=== PATIENT | male | born 1965 | race Caucasian/White ===

== ENCOUNTER 2018-05-23 04:53 | Emergency (ER) | payer BC ==
[~2018-05-23] VITALS: Ht 182.9 cm; Wt 131.8 kg
[~2018-05-23 04:53] MED LIST: TYLENO1
[2018-05-23 06:04] LABS: HEMATOCRIT 39.7 % (39.0-50.0); HEMOGLOBIN 12.7 g/dl (14.0-18.0); IMMATURE GRANULOCYTES 0.4 % (0.0-5.0); MEAN CELL VOLUME 90.4 fL CALC (80.0-100.0); MEAN CORPUSCULAR HGB 28.9 pG CALC (26.0-32.0); NEUT# 7.52 thou/uL (1.82-7.42); RED BLOOD COUNT 4.39 mill/uL (4.70-6.10); RED CELL DISTRI WIDTH 14.4 % (11.5-15.5)
[2018-05-23 06:19] LABS: ALBUMIN 3.6 g/dL (3.2-5.0); ALKALINE PHOSPHATASE 91 u/l (38-126); ANION GAP 13 (6-22 (CALC)); BILIRUBIN, TOTAL 0.4 mg/dL (0.0-1.4); BUN 17 mg/dL (9-20); BUN/CREATININE RATIO 12 (12-20 (CALC)); CARBON DIOXIDE 26 mmol/l (22-30); CHLORIDE 105 mmol/l (95-108); CREATININE 1.5 mg/dL (0.7-1.3); GFR 49 ML/MIN (>=60 (CALC)); GFR FOR AFR.AMER. 59 ML/MIN (>=60 (CALC)); POTASSIUM 4.2 mmol/l (3.5-5.1); SGOT/AST 19 u/l (17-59); SODIUM 140 mmol/l (137-146); TOTAL PROTEIN 6.3 g/dL (6.3-8.2)
[2018-05-23 06:31] LABS: MYOGLOBIN 70 ng/mL (0 - 121)
[2018-05-23 06:43] LABS: URINE BILIRUBIN - DIPSTICK NEGATIVE (NEGATIVE); URINE BLOOD DIPSTICK NEGATIVE (NEGATIVE); URINE COLOR YELLOW; URINE GLUCOSE - DIPSTICK NEGATIVE (NEGATIVE); URINE KETONE NEGATIVE (NEGATIVE); URINE LEUK ESTERASE NEGATIVE (NEGATIVE); URINE NITRITE - DIPSTICK NEGATIVE (Negative); URINE PH 6.5 (4.5-8.0); URINE PROTEIN - DIPSTICK NEGATIVE (NEG-TRACE); URINE UROBILINOGEN - DIPSTICK 0.2 E.U./dL (0.2)
[2018-05-23 06:46] LABS: BARBITURATES NEGATIVE (NEGATIVE); COCAINE NEGATIVE (NEGATIVE); METHADONE NEGATIVE (NEGATIVE); TETRAHYDROCANNABIONOL NEGATIVE (NEGATIVE); TRICYLIC ANTIDEPRESSANTS NEGATIVE (NEGATIVE)
[2018-05-23 06:48] LABS: OXCYCODONE NEGATIVE (NEGATIVE)
[2018-05-23] MEDS ORDERED: FLEXERIL PO (06:48)
[2018-05-23 07:21] VITALS: BP 164/93
== END 2018-05-23 07:21 | disposition home or self-care (01) | DRG 74 ==
LOC: ED 04:53
PROVIDERS: Emergency Medicine
DX: M54.12 Radiculopathy, cervical region (principal); I10 Essential (primary) hypertension; J45.909 Unspecified asthma, uncomplicated; F17.210 Nicotine dependence, cigarettes, uncomplicated; Z87.11 Personal history of peptic ulcer disease
CPT/HCPCS: Q9967

== ENCOUNTER 2018-05-23 13:40 | Emergency (ER) | payer BC ==
[~2018-05-23] VITALS: Ht 182.9 cm; Wt 131.4 kg
[~2018-05-23 13:40] MED LIST changes: +FLEXERIL PO
[2018-05-23 14:23] LABS: HEMOGLOBIN 12.5 g/dl (14.0-18.0); IMMATURE GRANULOCYTES 0.2 % (0.0-5.0); MEAN CELL VOLUME 90.3 fL CALC (80.0-100.0); MEAN CORPUSCULAR HGB 28.2 pG CALC (26.0-32.0); MEAN CORPUSCULAR HGB CONC 31.3 g/L CALC (32.0-36.0); NEUT# 6.9 thou/uL (1.82-7.42); RED BLOOD COUNT 4.43 mill/uL (4.70-6.10); RED CELL DISTRI WIDTH 14.5 % (11.5-15.5)
[2018-05-23 14:38] LABS: INTERNATIONAL NORMALIZED RATIO 1.1 RATIO (0.7-1.3); PROTHROMBIN TIME 11.4 SECONDS (9.0-12.5)
[2018-05-23 14:40] LABS: CREATININE 1.5 mg/dL (0.7-1.3); POTASSIUM 4.5 mmol/l (3.5-5.1)
[2018-05-23 16:04] VITALS: BP 169/104
== END 2018-05-23 16:10 | disposition left against medical advice (07) | DRG 66 ==
LOC: ED 13:40
PROVIDERS: Family Medicine
DX: I63.9 Cerebral infarction, unspecified (principal); R47.81 Slurred speech; R20.0 Anesthesia of skin; R29.702 NIHSS score 2; I10 Essential (primary) hypertension; J45.909 Unspecified asthma, uncomplicated; F17.200 Nicotine dependence, unspecified, uncomplicated; Z91.19 Patient's noncompliance with other medical treatment and regimen; Z87.11 Personal history of peptic ulcer disease
CPT/HCPCS: Q9967

== ENCOUNTER 2018-07-16 15:00 | Outpatient (RCR) | payer BC | END 2018-07-16 16:00 | disposition home or self-care (01) | DRG 69 | LOC: PT 15:00 | PROVIDERS: ATTEND Physician Assistant Medical | DX: G45.9 Transient cerebral ischemic attack, unspecified (principal) ==

== ENCOUNTER 2019-06-01 17:44 | Inpatient (IN) | payer BC ==
[~2019-06-01] VITALS: Ht 182.9 cm; Wt 139.3 kg
--- NOTE | 2019-06-01 17:55 | NUR ---
PT STATES HASNT BEEN FEELING GOOD FOR A WEEK, INCREAED SOB
[2019-06-01 18:09] LABS: IMMATURE GRANULOCYTES 0.8 % (0.0-5.0); MEAN CELL VOLUME 95.3 fL CALC (80.0-100.0); MEAN CORPUSCULAR HGB 31.1 pG CALC (26.0-32.0); MEAN CORPUSCULAR HGB CONC 32.6 g/L CALC (32.0-36.0); NEUT# 10.94 thou/uL (1.82-7.42); RED BLOOD COUNT 5.08 mill/uL (4.70-6.10); RED CELL DISTRI WIDTH 13.2 % (11.5-15.5)
[2019-06-01 18:10] LABS: HEMATOCRIT 48.4 % (39.0-50.0); HEMOGLOBIN 15.8 g/dl (14.0-18.0)
--- NOTE | 2019-06-01 18:10 | NUR ---
PT RESTING BETTER, STATES FEELS MUCH BETTER.
[2019-06-01 18:24] LABS: ALBUMIN 4.3 g/dL (3.2-5.0); CREATININE 1.5 mg/dL (0.7-1.3); POTASSIUM 3.9 mmol/l (3.5-5.1)
[2019-06-01 18:28] LABS: BILIRUBIN, TOTAL 1.9 mg/dL (0.0-1.4); TOTAL PROTEIN 8.4 g/dL (6.3-8.2)
--- NOTE | 2019-06-01 19:50 | NUR ---
PT UNABLE TO RECONCILE MEDICATIONS. SLEEPING AT THIS TIME WITH DAUGHTER AT BEDSIDE. STATES FEELS MUCH BETTER.
--- NOTE | 2019-06-01 20:49 | NUR ---
PT STATES RAN OUT OF HIS MEDICATIONS 2 DAYS AGO, BUT STILL CANT REMEMBER WHAT THEY WERE, DENIES BEING ON ANY NEB TX OR INHALERS. PT RESTING QUIETLY, APPROX 750 CC OF URINE OUTPUT SO FAR.
--- NOTE | 2019-06-01 21:00 | NUR ---
UP TO SIDE OF BED TO URINATE. PT BECOMES VERY SOB WITH MOVEMENT AND EXERTION
--- NOTE | 2019-06-01 21:46 | NUR ---
PT PLACED IN HOSPITAL BED, FAMILY REMAINS AT BEDSIDE
--- NOTE | 2019-06-01 22:05 | NUR ---
REPORT RECEIVED. CARE ASSUMED. PATIENT FOUND RESTING ON HIS RIGHT SIDE ON HOSPITAL BED. DENIES ANY COMPLAINTS. PATIENT PLACE ON MONITOR. AWARE OF BP CHECK EVERY 4 HOURS. PATIENT HAS CALL LIGHT WITHIN REACH. LIGHTS DIMMED. PATIENT GIVEN ADDITIONAL WARM BLANKETS.
--- NOTE | 2019-06-01 23:00 | NUR ---
PATIENT RESTING ON HOSPITAL BED IN POSITION OF COMFORT. CALL LIGHT WITHIN REACH.
--- NOTE | 2019-06-02 00:30 | NUR ---
PATIENT RESTING ON HIS RIGHT SIDE. PLACED BACK ON MONITOR SOME LEADS HAD COME OFF. PATIENT GIVEN WATER.
--- NOTE | 2019-06-02 02:00 | NUR ---
PATIENT RESTING WITH EYES CLSOED. GOOD CHEST RISE AND FALL NOTED.
--- NOTE | 2019-06-02 03:30 | NUR ---
URINE SAMPLE COLLECTED AND SENT. PATIENT GIVEN PO FLUIDS. AIR TEMP MADE COOLER FOR COMFORT. CALL LIGHT WITHIN REACH.
[2019-06-02 03:34] LABS: URINE BILIRUBIN - DIPSTICK NEGATIVE (NEGATIVE); URINE BLOOD DIPSTICK NEGATIVE (NEGATIVE); URINE COLOR YELLOW; URINE GLUCOSE - DIPSTICK 100 mg/dL (NEGATIVE); URINE KETONE NEGATIVE (NEGATIVE); URINE LEUK ESTERASE NEGATIVE (NEGATIVE); URINE NITRITE - DIPSTICK NEGATIVE (Negative); URINE PH 5.5 (4.5-8.0); URINE PROTEIN - DIPSTICK NEGATIVE (NEG-TRACE); URINE SPECIFIC GRAVITY 1.025
--- NOTE | 2019-06-02 05:50 | NUR ---
PATIENT UP TO BEDSIDE COMMODE, NASAL CANNULA FOUND TO BE ON PATIENT'S FOREHEAD, PLACED BACK IN NARES.
--- NOTE | 2019-06-02 06:00 | NUR ---
PATIENT SITTING ON SIDE OF BED. HAD SMALL LIQUID YELLOW STOOL. PATIENT IS TACHYPNEIC WITH AUDIBLE WHEEZING. LUNG SOUNDS ASSESSED, WHEEZING HEARD IN ALL DUMONT. PATIENT 02 SATS 88%. MD AWARE AND ORDERS RECEIVED.
--- NOTE | 2019-06-02 06:10 | NUR ---
LAB AT BEDSIDE FOR MORNING BLOOD DRAW. PATIENT TOLERATED WELL. PATIENT GIVEN PO FLUIDS AND HE PUT HIMSELF ON HOSPITAL BED LYING ON HIS RIGHT SIDE. AWAITING RESPIRATORY FOR NEB TREATMENT.
[2019-06-02 06:32] LABS: CHOLESTEROL HDL RATIO 4.4 (<4.4 (CALC))
--- NOTE | 2019-06-02 06:33 | NUR ---
PT IN E SLEEPING. TOLLERATED TX WELL.
--- NOTE | 2019-06-02 06:38 | NUR ---
PATIENT TOLERATED NEB WELL. SATS IMPROVED TO 93% PATIENT REQUESTING FOOD. INFORMED WHEN THE [place] DELIVERS.
--- NOTE | 2019-06-02 07:00 | NUR ---
BEDSIDE REPORT RECEIVED FROM JESUS MOREJON. PATIENT RESTING ON BED WITH EYES CLOSED RESPIRATIONS EVEN AND UNLABORED. WILL CONTINUE TO MONITOR.
--- NOTE | 2019-06-02 08:00 | NUR ---
PATIENT ASSISTED TO AND FROM BSC, SMALL YELLOW LOOSE STOOL EMPTIED. PATIENT NOTED TO HAVE DECREASED LUNG SOUNDS BILATERALLY. TEMP 99.0, HR 86, BP 107/58, O2 90% ON O2 @ 2L/MIN VIA NASAL CANNULA. CALL LIGHT WITHIN REACH.
--- NOTE | 2019-06-02 09:36 | NUR ---
PATIENT MEDICATED PER MD ORDER. URINAL PROVIDED. PATIENT ATE 100% OF MEAL TRAY WITH 120 ML OF ORANGE JUICE. PATIENT BACK IN BED. WILL CONTINUE TO MONITOR.
--- NOTE | 2019-06-02 11:26 | NUR ---
AT BEDSIDE TO SEE PATIENT.
--- NOTE | 2019-06-02 12:30 | NUR ---
FAMILY AT BEDSIDE WITH PATIENT. PATIENT SET UP WITH LUNCH TRAY.
--- NOTE | 2019-06-02 15:41 | NUR ---
Updated SBAR printed to floor
--- NOTE | 2019-06-02 16:18 | NUR ---
PATIENT RESTING ON BED TALKING ON PHONE. NO SIGNS OF DISTRESS NOTED. WILL CONTINUE TO MONITOR.
--- NOTE | 2019-06-02 16:49 | NUR ---
ATTEMPT MADE TO CALL REPORT, SPOKE TO ZARIA GARCIA. NURSE TAKING PATIENT WILL CALL BACK.
--- NOTE | 2019-06-02 17:05 | NUR ---
SECOND ATTEMPT MADE TO CALL REPORT, SPOKE TO LYUBOV. REPORTS NURSE YOSEF, NOT AVAILABLE FOR REPORT.
--- NOTE | 2019-06-02 18:40 | NUR ---
BEDSIDE REPORT GIVEN TO JESUS STANLEY. THIRD ATTEMPT MADE TO CALL REPORT. LYUBOV REPORTS NURSE WILL CALL FOR REPORT.
--- NOTE | 2019-06-02 19:00 | NUR ---
IN ROOM INTRODUCED SELF TO PT. AND FAMILY, NO C/O AT THIS TIME.
--- NOTE | 2019-06-02 19:03 | NUR ---
BEDSIDE REPORT GIVEN TO JESUS STANLEY. CARE RELINQUISHED.
--- NOTE | 2019-06-02 19:21 | NUR ---
Admission Note Report Given to: JARETH LEE Transported by: Wheelchair X Stretcher Transported with: X Nurse Transporter X Patent IV X O2 X Rivet Tapping Machine Operator Location: ICU X [facility]
--- NOTE | 2019-06-02 19:25 | NUR ---
PT. TAKEN TO [facility] VIA HOSPITAL BED.
[2019-06-02 19:31] VITALS: BP 98/58
--- NOTE | 2019-06-02 21:00 | NUR ---
RECEIVED REPORT FROM NURSE STANLEY, PATIENT TRANSPORTED VIA BED, ARRIVED TO FOOR @ 1931, ALERT ORIENTED WITH SALINE LOCK ON RAC PATENT FLUSHES WELL REMAINS ON TELE SR 96, HOOKED TO O2 @ 3LPM VIA NC, WITH SHALLOW, UNLABORED BREATHING, NOTED TO HAVE EXERTIONAL DYSPNEA, ORIENTED TO ROOM AND CALL LIGHT AYSTEM.
--- NOTE | 2019-06-02 23:30 | NUR ---
PATIENT ASSISTED TO BATHROOM, USES CANE TO AMBULATE STAND BY ASSIST, ASSISTED BACK IN BED.
[2019-06-02 23:35] VITALS: BP 108/70
[2019-06-03 03:30] VITALS: BP 127/61
--- NOTE | 2019-06-03 04:00 | NUR ---
PATIENT RESTING IN BED WITH EYES CLOSED, EVEN UNLABORED BREATHING CALL LIGHT AT REACH.
[2019-06-03 05:19] LABS: HEMATOCRIT 44.3 % (39.0-50.0); HEMOGLOBIN 14.1 g/dl (14.0-18.0); IMMATURE GRANULOCYTES 0.8 % (0.0-5.0); MEAN CELL VOLUME 97.1 fL CALC (80.0-100.0); MEAN CORPUSCULAR HGB 30.9 pG CALC (26.0-32.0); MEAN CORPUSCULAR HGB CONC 31.8 g/L CALC (32.0-36.0); NEUT# 13.15 thou/uL (1.82-7.42); RED BLOOD COUNT 4.56 mill/uL (4.70-6.10); RED CELL DISTRI WIDTH 13.2 % (11.5-15.5)
[2019-06-03 05:28] LABS: CREATININE 1.8 mg/dL (0.7-1.3); MAGNESIUM 2.2 mg/dL (1.6-2.3)
[2019-06-03 05:29] LABS: POTASSIUM 4.8 mmol/l (3.5-5.1)
[2019-06-03 08:10] VITALS: BP 109/65
--- NOTE | 2019-06-03 08:10 | NUR ---
PT RESTING IN BED. PT SOB ON RA O2 SAT 84%. O2 PLACED ON PT VIA NC @ 3L O2 SAT 91. LUNGS SOUND COARSE. PEDAL PULSE STRONG. PT DENIES ANY PAIN OR DISCOMFORT AT THIS TIME. TELE IN PLACE. CALL ROMANO WITHIN REACH. WILL CONTINUE TO MONITOR.
[2019-06-03 10:12] VITALS: BP 117/74
[2019-06-03 11:10] VITALS: BP 115/74
[2019-06-03] MEDS ORDERED: LASIX 20 MG TAB20 MG PO (12:18)
[2019-06-03] MEDS ORDERED: HYZAAR1 TA2 PO (12:18)
[2019-06-03] MEDS ORDERED: LIPITOR20 M1 PO (12:19)
[2019-06-03] MEDS ORDERED: NORVASC10 M1 PO (12:19)
[2019-06-03] MEDS ORDERED: KLOR-CON M2020 MEQ PO (12:20)
--- NOTE | 2019-06-03 12:51 | NUR ---
PT RETURNING TO FLOOR FROM ULTRA SOUND VIA WHEELCHAIR.
[2019-06-03 15:52] VITALS: BP 122/78
--- NOTE | 2019-06-03 16:15 | NUR ---
PT RESTING IN BED. RESPIRATIONS SHALLOW ON O2 @ 3L VIA NC. NO S/S OF DISTRESS AT THIS TIME. SAFETY PRECAUTIONS IN PLACE.
[2019-06-03 19:15] VITALS: BP 121/76
--- NOTE | 2019-06-03 20:15 | NUR ---
PT RESTING IN BED DAUGHTER AT BED SIDE. NO S/S OF DISTRESS AT THIS TIME. SAFETY PRECAUTIONS IN PLACE. WILL CONTINUE TO DENY.
--- NOTE | 2019-06-04 | NUR ---
PT RESTING IN BED. NO S/S OF DISTRESS AT THIS TIME.
[2019-06-04 01:04] VITALS: BP 121/63
--- NOTE | 2019-06-04 03:34 | NUR ---
PT RESTING WITH EYES CLOSED; NO S/SX OF DISTRESS NOTED; CALL ROMANO WITHIN REACH; WILL CONTINUE TO MONITOR.
[2019-06-04 04:14] VITALS: BP 127/67
[2019-06-04 04:18] LABS: HEMATOCRIT 44.6 % (39.0-50.0); HEMOGLOBIN 13.9 g/dl (14.0-18.0); MEAN CELL VOLUME 98.5 fL CALC (80.0-100.0); MEAN CORPUSCULAR HGB 30.7 pG CALC (26.0-32.0); MEAN CORPUSCULAR HGB CONC 31.2 g/L CALC (32.0-36.0); RED BLOOD COUNT 4.53 mill/uL (4.70-6.10); RED CELL DISTRI WIDTH 13.2 % (11.5-15.5)
[2019-06-04 04:53] LABS: CREATININE 1.9 mg/dL (0.7-1.3); MAGNESIUM 2.3 mg/dL (1.6-2.3)
[2019-06-04 05:04] LABS: POTASSIUM 5.2 mmol/l (3.5-5.1)
--- NOTE | 2019-06-04 06:46 | NUR ---
PT IS RELAXING IN BED WITH NO DISTRESS NOTED. IV SITE IS FREE FROM REDNESS OR EDEMA.
[2019-06-04 07:22] VITALS: BP 107/65
--- NOTE | 2019-06-04 08:04 | NUR ---
PT IS SITTING IN THE SIDE OF THE BED. ASSESSMENT DONE. PT IS A&O X3. PT STATED PAIN IN KNEE BUT REFUSED PAIN MEDICATION AT THIS TIME. O2 AT 3L VIA NC. PT DENIES NEEDS AT THIS TIME. CALL LIGHT IN REACH,
[2019-06-04 11:56] VITALS: BP 125/70
--- NOTE | 2019-06-04 12:00 | NUR ---
PT SITTING IN THE SIDE OF THE BED. PT STATED WAITING TO BE DC. TELE IN PLACE. PT DENIES ANY OTHER NEEDS AT THIS TIME. CALL LIGHT IN REACH.
[2019-06-04] MEDS ORDERED: COZAAR50 MG PO (12:17)
[2019-06-04] MEDS ORDERED: ZITHROMAX500 MG PO (12:17)
[2019-06-04] MEDS ORDERED: SPIRIVA RE2.5 MCG/AC IN (12:17)
[2019-06-04] MEDS ORDERED: PREDNISONE10 MG PO (12:17)
[2019-06-04 16:00] VITALS: BP 133/76
--- NOTE | 2019-06-04 16:06 | NUR ---
PT IS SITTING IN THE SIDE OF THE BED. PT WAITING FOR HIS O2 TANK SO HE CAN BE DC. PT DENIES ANY OTHER NEEDS AT THAT THIS TIME. CALL LIGHT IN REACH.
--- NOTE | 2019-06-04 18:02 | NUR ---
Discharge instructions given. Patient verbalizes understanding of same. Discharged in stable condition via Wheelchair to Home with staff. All belongings sent with pt.
--- NOTE | 2019-06-12 11:41 | NUR ---
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 DR. 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 COUNSELED PATIENT ON HOW TO USE THE HANDIHALER AND REQUESTED THAT HE ASK THE PHARMACIST AT PRIMER INSERTING MACHINE OPERATOR TO SHOW HIM HOW TO USE IT. PT UNDERSTOOD AND STATED HE WILL PRIMER INSERTING MACHINE OPERATOR THE PRESCRIPTION TODAY.
== END 2019-06-04 18:00 | disposition home or self-care (01) | DRG 193 ==
LOC: ED 17:44 → ED-I 20:11 → ED 20:27 → ED-I 20:27 → MS2 06-02 16:52
PROVIDERS: Emergency Medicine; Nurse Practitioner Family; ADMIT Internal Medicine; ATTEND Internal Medicine
DX: J18.9 Pneumonia, unspecified organism (principal); J96.01 Acute respiratory failure with hypoxia; J44.0 Chronic obstructive pulmonary disease with (acute) lower respiratory infection; J44.1 Chronic obstructive pulmonary disease with (acute) exacerbation; I12.9 Hypertensive chronic kidney disease with stage 1 through stage 4 chronic kidney disease, or unspecified chronic kidney disease; N18.3 Chronic kidney disease, stage 3 (moderate); E78.5 Hyperlipidemia, unspecified; F17.210 Nicotine dependence, cigarettes, uncomplicated; T50.1X6A Underdosing of loop [high-ceiling] diuretics, initial encounter; T46.5X6A Underdosing of other antihypertensive drugs, initial encounter; Z91.128 Patient's intentional underdosing of medication regimen for other reason
CPT/HCPCS: J1650

== ENCOUNTER 2019-08-29 | Emergency (ER) | payer BC ==
[~2019-08-29] MED LIST changes: +COZAAR50 MG PO; +HYZAAR1 TA2 PO; +KLOR-CON M2020 MEQ PO; +LASIX 20 MG TAB20 MG PO; +LIPITOR20 M1 PO; +NORVASC10 M1 PO; +PREDNISONE10 MG PO; +SPIRIVA RE2.5 MCG/AC IN; +ZITHROMAX500 MG PO
[2019-08-29 10:07] LABS: POTASSIUM 4.2 mmol/l (3.5-5.1)
[2019-08-29 10:15] LABS: ALBUMIN 3.3 g/dL (3.2-5.0); BILIRUBIN, TOTAL 2.9 mg/dL (0.0-1.4); CREATININE 6.6 mg/dL (0.7-1.3)
[2019-08-29 10:16] LABS: HEMATOCRIT 44.6 % (39.0-50.0); HEMOGLOBIN 13.9 g/dl (14.0-18.0); MEAN CELL VOLUME 97.6 fL CALC (80.0-100.0); MEAN CORPUSCULAR HGB 30.4 pG CALC (26.0-32.0); MEAN CORPUSCULAR HGB CONC 31.2 g/dL CAL (32.0-36.0); NEUT# 11.84 thou/uL (1.82-7.42); RED BLOOD COUNT 4.57 mill/uL (4.70-6.10); RED CELL DISTRI WIDTH 13.6 % (11.5-15.5)
[2019-08-29 13:42] LABS: URINE BILIRUBIN - DIPSTICK NEGATIVE (NEGATIVE); URINE BLOOD DIPSTICK LARGE (NEGATIVE); URINE COLOR YELLOW; URINE GLUCOSE - DIPSTICK NEGATIVE (NEGATIVE); URINE KETONE TRACE mg/dL (NEGATIVE); URINE LEUK ESTERASE NEGATIVE (NEGATIVE); URINE NITRITE - DIPSTICK NEGATIVE (Negative); URINE PROTEIN - DIPSTICK 100 mg/dL (NEG-TRACE); URINE SPECIFIC GRAVITY >=1.030
[2019-08-29 13:45] LABS: URINE EPITHELIAL CELLS MODERATE EPI/hpf (0-FEW)
--- NOTE | 2019-08-30 11:57 | NUR ---
Informed Ricarda in ICU [facility] of COVID results, pt in ICU 5 - D5 faxed to [phone], confirmed with Ricarda they received the results by fax.
== END 2019-08-29 14:10 | disposition short-term general hospital (02) | DRG 872 ==
PROVIDERS: Emergency Medicine
DX: A41.9 Sepsis, unspecified organism (principal); N17.9 Acute kidney failure, unspecified; L02.416 Cutaneous abscess of left lower limb; J44.1 Chronic obstructive pulmonary disease with (acute) exacerbation; M62.82 Rhabdomyolysis; I95.9 Hypotension, unspecified; R65.20 Severe sepsis without septic shock; I10 Essential (primary) hypertension; F17.210 Nicotine dependence, cigarettes, uncomplicated; Z99.81 Dependence on supplemental oxygen; Z20.828 Contact with and (suspected) exposure to other viral communicable diseases

== ENCOUNTER 2019-11-15 12:07 | Emergency (ER) | payer BC ==
[~2019-11-15] VITALS: Ht 182.9 cm; Wt 137.7 kg
[2019-11-15] MEDS ORDERED: ELIQUIS5 MG PO (12:47)
[2019-11-15] MEDS ORDERED: METOPROL TAR25 MG PO (12:48)
[2019-11-15] MEDS ORDERED: SEROQUEL25 MG PO (12:48)
[2019-11-15] MEDS ORDERED: PROTONIX40 M2 PO (12:49)
[2019-11-15] MEDS ORDERED: SUCRALFATE1 GM PO (12:49)
[2019-11-15] MEDS ORDERED: LORATADINE10 M1 PO (12:49)
[2019-11-15 13:39] LABS: IMMATURE GRANULOCYTES 0.1 % (0.0-5.0); MEAN CELL VOLUME 95.1 fL CALC (80.0-100.0); MEAN CORPUSCULAR HGB 28.7 pG CALC (26.0-32.0); MEAN CORPUSCULAR HGB CONC 30.2 g/dL CAL (32.0-36.0); NEUT# 4.27 thou/uL (1.82-7.42); RED BLOOD COUNT 3.45 mill/uL (4.70-6.10); RED CELL DISTRI WIDTH 14.9 % (11.5-15.5)
[2019-11-15 13:47] LABS: HEMATOCRIT 32.8 % (39.0-50.0); HEMOGLOBIN 9.9 g/dl (14.0-18.0)
[2019-11-15 13:51] LABS: ALBUMIN 3.3 g/dL (3.2-5.0); ALKALINE PHOSPHATASE 84 u/l (38-126); BUN 8 mg/dL (9-20); SGOT/AST 15 u/l (17-59); SODIUM 139 mmol/l (137-146); TOTAL PROTEIN 6.5 g/dL (6.3-8.2)
[2019-11-15 14:00] LABS: ANION GAP 10 (6-22 (CALC)); BILIRUBIN, TOTAL 0.6 mg/dL (0.0-1.4); BUN/CREATININE RATIO 6 (12-20 (CALC)); CARBON DIOXIDE 28 mmol/l (22-30); CHLORIDE 105 mmol/l (95-108); CREATININE 1.3 mg/dL (0.7-1.3); GFR 57 ML/MIN (>=60 (CALC)); GFR FOR AFR.AMER. > 60 ML/MIN (>=60 (CALC))
[2019-11-15] MEDS ORDERED: KEFLEX500 MG PO (15:31)
[2019-11-15] MEDS ORDERED: BACTRIM DS1 TAB PO (15:31)
[2019-11-15 16:35] VITALS: BP 127/68
== END 2019-11-15 16:35 | disposition home or self-care (01) | DRG 605 ==
LOC: ED 12:07
PROVIDERS: Emergency Medicine
DX: S71.102A Unspecified open wound, left thigh, initial encounter (principal); I10 Essential (primary) hypertension; F17.210 Nicotine dependence, cigarettes, uncomplicated; B95.62 Methicillin resistant Staphylococcus aureus infection as the cause of diseases classified elsewhere; X58.XXXA Exposure to other specified factors, initial encounter

== ENCOUNTER 2020-09-21 19:35 | Emergency (ER) | payer SELFPAY ==
[~2020-09-21 19:35] MED LIST changes: +BACTRIM DS1 TAB PO; +ELIQUIS5 MG PO; +KEFLEX500 MG PO; +LORATADINE10 M1 PO; +METOPROL TAR25 MG PO; +PROTONIX40 M2 PO; +SEROQUEL25 MG PO; +SUCRALFATE1 GM PO
[2020-09-21 20:38] LABS: IMMATURE GRANULOCYTES 0.4 % (0.0-5.0); MEAN CELL VOLUME 94.5 fL CALC (80.0-100.0); MEAN CORPUSCULAR HGB 27.9 pG CALC (26.0-32.0); MEAN CORPUSCULAR HGB CONC 29.6 g/dL CAL (32.0-36.0); NEUT# 11.6 thou/uL (1.82-7.42); RED BLOOD COUNT 4.58 mill/uL (4.70-6.10); RED CELL DISTRI WIDTH 15.4 % (11.5-15.5)
[2020-09-21 20:40] LABS: HEMATOCRIT 43.3 % (39.0-50.0); HEMOGLOBIN 12.8 g/dl (14.0-18.0)
[2020-09-21 20:59] LABS: CREATININE 1.8 mg/dL (0.7-1.3); POTASSIUM 4.2 mmol/l (3.5-5.1)
[2020-09-21 21:00] LABS: ALBUMIN 4.4 g/dL (3.2-5.0); BILIRUBIN, TOTAL 1.1 mg/dL (0.0-1.4); TOTAL PROTEIN 8.1 g/dL (6.3-8.2)
[2020-09-22 01:21] VITALS: BP 133/72
== END 2020-09-22 01:22 | disposition short-term general hospital (02) | DRG 603 ==
LOC: ED 19:35
PROVIDERS: Emergency Medicine
DX: L02.214 Cutaneous abscess of groin (principal); B95.62 Methicillin resistant Staphylococcus aureus infection as the cause of diseases classified elsewhere; I10 Essential (primary) hypertension; F17.210 Nicotine dependence, cigarettes, uncomplicated; J45.909 Unspecified asthma, uncomplicated; Z86.14 Personal history of Methicillin resistant Staphylococcus aureus infection
CPT/HCPCS: Q9967

== ENCOUNTER 2021-08-17 14:00 | Inpatient (IN) | payer MEDICARE, MEDICAID ==
[~2021-08-17] VITALS: Ht 182.9 cm; Wt 159.0 kg
[2021-08-17] VITALS (46 sets, daily range): BP systolic 90–178; BP diastolic 34–99
[2021-08-17 14:46] LABS: IMMATURE GRANULOCYTES 0.1 % (0.0-5.0); MEAN CELL VOLUME 97.6 fL CALC (80.0-100.0); MEAN CORPUSCULAR HGB 27.9 pG CALC (26.0-32.0); MEAN CORPUSCULAR HGB CONC 28.5 g/dL CAL (32.0-36.0); NEUT# 6.61 thou/uL (1.82-7.42); RED BLOOD COUNT 5.35 mill/uL (4.70-6.10); RED CELL DISTRI WIDTH 15.6 % (11.5-15.5)
[2021-08-17 14:47] LABS: HEMATOCRIT 52.2 % (39.0-50.0); HEMOGLOBIN 14.9 g/dl (14.0-18.0)
[2021-08-17 14:59] LABS: ALBUMIN 3.9 g/dL (3.2-5.0); BILIRUBIN, TOTAL 1.2 mg/dL (0.0-1.4); CREATININE 1.5 mg/dL (0.7-1.3); POTASSIUM 4.1 mmol/l (3.5-5.1); TOTAL PROTEIN 7.3 g/dL (6.3-8.2)
[2021-08-17] MEDS ORDERED: LASIX 40 MG TAB40 MG PO (20:08)
[2021-08-17] MEDS ORDERED: VENTOLIN HFA108 MCG (20:09)
[2021-08-17] MEDS ORDERED: KLOR-CON M2020 MEQ PO (20:10)
[2021-08-18] VITALS (93 sets, daily range): BP systolic 95–134; BP diastolic 39–84
[2021-08-18 00:34] LABS: URINE BILIRUBIN - DIPSTICK NEGATIVE (NEGATIVE); URINE BLOOD DIPSTICK NEGATIVE (NEGATIVE); URINE COLOR YELLOW; URINE GLUCOSE - DIPSTICK NEGATIVE (NEGATIVE); URINE KETONE NEGATIVE (NEGATIVE); URINE LEUK ESTERASE NEGATIVE (NEGATIVE); URINE NITRITE - DIPSTICK NEGATIVE (Negative); URINE PROTEIN - DIPSTICK 30 mg/dL (NEG-TRACE); URINE UROBILINOGEN - DIPSTICK 0.2 E.U./dL (0.2)
[2021-08-18 00:36] LABS: URINE RBC 0-2 RBC/hpf (0-5); URINE SQUAMOUS EPITHELIAL CELL FEW EPI/hpf (0-FEW)
[2021-08-18 05:50] LABS: HEMATOCRIT 49.3 % (39.0-50.0); HEMOGLOBIN 14.5 g/dl (14.0-18.0); IMMATURE GRANULOCYTES 0.1 % (0.0-5.0); MEAN CELL VOLUME 96.3 fL CALC (80.0-100.0); MEAN CORPUSCULAR HGB 28.3 pG CALC (26.0-32.0); MEAN CORPUSCULAR HGB CONC 29.4 g/dL CAL (32.0-36.0); NEUT# 13.01 thou/uL (1.82-7.42); RED BLOOD COUNT 5.12 mill/uL (4.70-6.10); RED CELL DISTRI WIDTH 15.6 % (11.5-15.5)
[2021-08-18 06:02] LABS: BILIRUBIN, TOTAL 1.2 mg/dL (0.0-1.4); CREATININE 1.5 mg/dL (0.7-1.3); MAGNESIUM 1.9 mg/dL (1.6-2.3); POTASSIUM 4.9 mmol/l (3.5-5.1)
[2021-08-18 06:17] LABS: ALBUMIN 2.9 g/dL (3.2-5.0); TOTAL PROTEIN 5.5 g/dL (6.3-8.2)
[2021-08-18 11:35] LABS: HEMATOCRIT 49.4 % (39.0-50.0); HEMOGLOBIN 14.5 g/dl (14.0-18.0); IMMATURE GRANULOCYTES 0.2 % (0.0-5.0); MEAN CELL VOLUME 94.6 fL CALC (80.0-100.0); MEAN CORPUSCULAR HGB 27.8 pG CALC (26.0-32.0); MEAN CORPUSCULAR HGB CONC 29.4 g/dL CAL (32.0-36.0); NEUT# 11.71 thou/uL (1.82-7.42); RED BLOOD COUNT 5.22 mill/uL (4.70-6.10); RED CELL DISTRI WIDTH 15.7 % (11.5-15.5)
[2021-08-18 12:07] LABS: ACT PARTIAL THROMBO TIME 25.4 SECONDS (20.0-32.5); INTERNATIONAL NORMALIZED RATIO 1.1 RATIO (0.7-1.3); PROTHROMBIN TIME 11.1 SECONDS (9.0-12.5)
[2021-08-19] VITALS (83 sets, daily range): BP systolic 116–146; BP diastolic 66–96
[2021-08-19 06:06] LABS: HEMATOCRIT 48.4 % (39.0-50.0); HEMOGLOBIN 14.2 g/dl (14.0-18.0); MEAN CELL VOLUME 94.5 fL CALC (80.0-100.0); MEAN CORPUSCULAR HGB 27.7 pG CALC (26.0-32.0); MEAN CORPUSCULAR HGB CONC 29.3 g/dL CAL (32.0-36.0); RED BLOOD COUNT 5.12 mill/uL (4.70-6.10); RED CELL DISTRI WIDTH 16.2 % (11.5-15.5)
[2021-08-19 06:32] LABS: ALBUMIN 2.9 g/dL (3.2-5.0); BILIRUBIN, TOTAL 0.9 mg/dL (0.0-1.4); CREATININE 1.6 mg/dL (0.7-1.3); MAGNESIUM 2.1 mg/dL (1.6-2.3); POTASSIUM 4.5 mmol/l (3.5-5.1); TOTAL PROTEIN 5.5 g/dL (6.3-8.2)
[2021-08-20] VITALS (20 sets, daily range): BP systolic 108–142; BP diastolic 57–83
[2021-08-20 06:09] LABS: HEMATOCRIT 45.6 % (39.0-50.0); HEMOGLOBIN 13.4 g/dl (14.0-18.0); MEAN CELL VOLUME 95.2 fL CALC (80.0-100.0); MEAN CORPUSCULAR HGB CONC 29.4 g/dL CAL (32.0-36.0); RED BLOOD COUNT 4.79 mill/uL (4.70-6.10); RED CELL DISTRI WIDTH 16.4 % (11.5-15.5)
[2021-08-20 06:27] LABS: ANION GAP 10 (6-22 (CALC)); BUN 32 mg/dL (9-20); BUN/CREATININE RATIO 23 (12-20 (CALC)); CARBON DIOXIDE 36 mmol/l (22-30); CHLORIDE 94 mmol/l (95-108); CREATININE 1.4 mg/dL (0.7-1.3); GFR 52 ML/MIN (>=60 (CALC)); GFR FOR AFR.AMER. > 60 ML/MIN (>=60 (CALC)); MAGNESIUM 2.1 mg/dL (1.6-2.3); SODIUM 136 mmol/l (137-146)
[2021-08-21] VITALS (19 sets, daily range): BP systolic 105–186; BP diastolic 48–91
[2021-08-21 06:21] LABS: HEMOGLOBIN 13.5 g/dl (14.0-18.0); IMMATURE GRANULOCYTES 0.2 % (0.0-5.0); MEAN CELL VOLUME 97.8 fL CALC (80.0-100.0); MEAN CORPUSCULAR HGB 27.5 pG CALC (26.0-32.0); MEAN CORPUSCULAR HGB CONC 28.1 g/dL CAL (32.0-36.0); NEUT# 4.93 thou/uL (1.82-7.42); RED BLOOD COUNT 4.91 mill/uL (4.70-6.10); RED CELL DISTRI WIDTH 16.1 % (11.5-15.5)
[2021-08-21 06:42] LABS: ALBUMIN 3.3 g/dL (3.2-5.0); ALKALINE PHOSPHATASE 68 u/l (38-126); BUN 23 mg/dL (9-20); BUN/CREATININE RATIO 18 (12-20 (CALC)); CHLORIDE 97 mmol/l (95-108); CREATININE 1.3 mg/dL (0.7-1.3); GFR 57 ML/MIN (>=60 (CALC)); GFR FOR AFR.AMER. > 60 ML/MIN (>=60 (CALC)); SGOT/AST 31 u/l (17-59); SODIUM 142 mmol/l (137-146); TOTAL PROTEIN 6.3 g/dL (6.3-8.2)
[2021-08-21 07:12] LABS: ANION GAP 9 (6-22 (CALC)); BILIRUBIN, TOTAL 1.4 mg/dL (0.0-1.4)
[2021-08-21 07:14] LABS: CARBON DIOXIDE 40 mmol/l (22-30)
[2021-08-22] VITALS (17 sets, daily range): BP systolic 121–169; BP diastolic 65–98
[2021-08-22 05:18] LABS: HEMATOCRIT 49.8 % (39.0-50.0); HEMOGLOBIN 14.1 g/dl (14.0-18.0); IMMATURE GRANULOCYTES 0.1 % (0.0-5.0); MEAN CELL VOLUME 99.2 fL CALC (80.0-100.0); MEAN CORPUSCULAR HGB 28.1 pG CALC (26.0-32.0); MEAN CORPUSCULAR HGB CONC 28.3 g/dL CAL (32.0-36.0); NEUT# 4.72 thou/uL (1.82-7.42); RED BLOOD COUNT 5.02 mill/uL (4.70-6.10); RED CELL DISTRI WIDTH 15.6 % (11.5-15.5)
[2021-08-22 05:46] LABS: ANION GAP 9 (6-22 (CALC)); BUN 17 mg/dL (9-20); BUN/CREATININE RATIO 13 (12-20 (CALC)); CARBON DIOXIDE 38 mmol/l (22-30); CHLORIDE 97 mmol/l (95-108); CREATININE 1.3 mg/dL (0.7-1.3); GFR 57 ML/MIN (>=60 (CALC)); GFR FOR AFR.AMER. > 60 ML/MIN (>=60 (CALC)); MAGNESIUM 2.4 mg/dL (1.6-2.3); SODIUM 141 mmol/l (137-146)
[2021-08-23] VITALS (109 sets, daily range): BP systolic 99–144; BP diastolic 59–80
[2021-08-23 03:28] LABS: HEMATOCRIT 53.6 % (39.0-50.0); HEMOGLOBIN 14.6 g/dl (14.0-18.0); MEAN CELL VOLUME 102.1 fL CALC (80.0-100.0); MEAN CORPUSCULAR HGB 27.8 pG CALC (26.0-32.0); MEAN CORPUSCULAR HGB CONC 27.2 g/dL CAL (32.0-36.0); RED BLOOD COUNT 5.25 mill/uL (4.70-6.10); RED CELL DISTRI WIDTH 15.5 % (11.5-15.5)
[2021-08-23 03:42] LABS: CREATININE 1.7 mg/dL (0.7-1.3); MAGNESIUM 2.5 mg/dL (1.6-2.3)
[2021-08-23 03:43] LABS: POTASSIUM 4.9 mmol/l (3.5-5.1)
[2021-08-24] VITALS (84 sets, daily range): BP systolic 82–120; BP diastolic 43–82
[2021-08-24 05:16] LABS: HEMATOCRIT 50.8 % (39.0-50.0); HEMOGLOBIN 14.9 g/dl (14.0-18.0); MEAN CORPUSCULAR HGB 27.7 pG CALC (26.0-32.0); MEAN CORPUSCULAR HGB CONC 29.3 g/dL CAL (32.0-36.0); RED BLOOD COUNT 5.37 mill/uL (4.70-6.10); RED CELL DISTRI WIDTH 15.6 % (11.5-15.5)
[2021-08-24 05:35] LABS: ANION GAP 11 (6-22 (CALC)); BUN 30 mg/dL (9-20); BUN/CREATININE RATIO 21 (12-20 (CALC)); CARBON DIOXIDE 33 mmol/l (22-30); CHLORIDE 99 mmol/l (95-108); CREATININE 1.4 mg/dL (0.7-1.3); GFR 52 ML/MIN (>=60 (CALC)); GFR FOR AFR.AMER. > 60 ML/MIN (>=60 (CALC)); MAGNESIUM 2.2 mg/dL (1.6-2.3); SODIUM 139 mmol/l (137-146)
[2021-08-24 05:40] LABS: POTASSIUM 3.5 mmol/l (3.5-5.1)
[2021-08-24 05:46] LABS: MEAN CELL VOLUME 94.6 fL CALC (80.0-100.0)
[2021-08-24 14:31] LABS: ACT PARTIAL THROMBO TIME 27.4 SECONDS (20.0-32.5); INTERNATIONAL NORMALIZED RATIO 1.1 RATIO (0.7-1.3); PROTHROMBIN TIME 11.1 SECONDS (9.0-12.5)
== END 2021-08-24 20:15 | disposition short-term general hospital (02) | DRG 208 ==
LOC: ED 14:00 → ED-I 14:25 → ED 14:25 → ED-I 16:26 → ED 17:00 → ICU 17:01 → MS2 08-22 11:04 → ICU 08-22 11:04 → MS2 08-22 11:04 → ICU 08-23 02:30
PROVIDERS: Family Medicine; Hospitalist; Internal Medicine; ADMIT Internal Medicine; ATTEND Internal Medicine
PROC: 5A09357 Assistance with Respiratory Ventilation, Less than 24 Consecutive Hours, Continuous Positive Airway Pressure (ICD-10-PCS; principal; 2021-08-17)
PROC: 5A1945Z Respiratory Ventilation, 24-96 Consecutive Hours (ICD-10-PCS; 2021-08-17)
PROC: 05JY3ZZ Inspection of Upper Vein, Percutaneous Approach (ICD-10-PCS; 2021-08-17)
PROC: 0BH17EZ Insertion of Endotracheal Airway into Trachea, Via Natural or Artificial Opening (ICD-10-PCS; 2021-08-17)
PROC: 0T9B70Z Drainage of Bladder with Drainage Device, Via Natural or Artificial Opening (ICD-10-PCS; 2021-08-17)
PROC: 02HV33Z Insertion of Infusion Device into Superior Vena Cava, Percutaneous Approach (ICD-10-PCS; 2021-08-18)
PROC: B548ZZA Ultrasonography of Superior Vena Cava, Guidance (ICD-10-PCS; 2021-08-18)
PROC: 0BH17EZ Insertion of Endotracheal Airway into Trachea, Via Natural or Artificial Opening (ICD-10-PCS; 2021-08-23)
PROC: 5A1945Z Respiratory Ventilation, 24-96 Consecutive Hours (ICD-10-PCS; 2021-08-23)
PROC: 5A12012 Performance of Cardiac Output, Single, Manual (ICD-10-PCS; 2021-08-23)
PROC: 0T9B70Z Drainage of Bladder with Drainage Device, Via Natural or Artificial Opening (ICD-10-PCS; 2021-08-23)
DX: J96.01 Acute respiratory failure with hypoxia (principal); J18.9 Pneumonia, unspecified organism; I50.33 Acute on chronic diastolic (congestive) heart failure; R57.0 Cardiogenic shock; I46.2 Cardiac arrest due to underlying cardiac condition; L03.115 Cellulitis of right lower limb; Z68.42 Body mass index [BMI] 45.0-49.9, adult; N17.9 Acute kidney failure, unspecified; I13.0 Hypertensive heart and chronic kidney disease with heart failure and stage 1 through stage 4 chronic kidney disease, or unspecified chronic kidney disease; J44.0 Chronic obstructive pulmonary disease with (acute) lower respiratory infection; T88.6XXA Anaphylactic reaction due to adverse effect of correct drug or medicament properly administered, initial encounter; I47.2 Ventricular tachycardia; J96.02 Acute respiratory failure with hypercapnia; N18.30 Chronic kidney disease, stage 3 unspecified; T36.8X5A Adverse effect of other systemic antibiotics, initial encounter; G47.33 Obstructive sleep apnea (adult) (pediatric); E66.01 Morbid (severe) obesity due to excess calories; I89.0 Lymphedema, not elsewhere classified; K21.9 Gastro-esophageal reflux disease without esophagitis; F17.200 Nicotine dependence, unspecified, uncomplicated; Z79.01 Long term (current) use of anticoagulants; Z86.718 Personal history of other venous thrombosis and embolism; Z86.711 Personal history of pulmonary embolism; Z20.822 Contact with and (suspected) exposure to COVID-19
CPT/HCPCS: J0692; J1245; J1644; S0164

== ENCOUNTER 2022-06-09 09:51 | Emergency (ER) | payer MEDICARE, MEDICAID ==
[2022-06-09] VITALS (34 sets, daily range): BP systolic 117–148; BP diastolic 36–94
[~2022-06-09] VITALS: Ht 182.9 cm; Wt 181.0 kg
[~2022-06-09 09:51] MED LIST changes: +LASIX 40 MG TAB40 MG PO; +VENTOLIN HFA108 MCG
[2022-06-09 10:32] LABS: BASO% 0.3 % (0-3); EOS% 0.6 % (0-8); HEMOGLOBIN 13.5 g/dl (14.0-18.0); IMMATURE GRANULOCYTES 0.2 % (0.0-5.0); LYMPH% 8.6 % (15-41); MEAN CELL VOLUME 96.5 fL CALC (80.0-100.0); MEAN CORPUSCULAR HGB 27.7 pG CALC (26.0-32.0); MEAN CORPUSCULAR HGB CONC 28.7 g/dL CAL (32.0-36.0); MONO% 7.6 % (2-13); NEUT# 8.93 thou/uL (1.82-7.42); NEUT% 82.7 % (42-76); RED BLOOD COUNT 4.87 mill/uL (4.70-6.10); RED CELL DISTRI WIDTH 17.3 % (11.5-15.5)
[2022-06-09 10:51] LABS: ALBUMIN 4.2 g/dL (3.2-5.0); ALKALINE PHOSPHATASE 106 u/l (38-126); ANION GAP 9 (6-22 (CALC)); BILIRUBIN, TOTAL 1.3 mg/dL (0.0-1.4); BUN 17 mg/dL (9-20); BUN/CREATININE RATIO 12 (12-20 (CALC)); CARBON DIOXIDE 35 mmol/l (22-30); CHLORIDE 100 mmol/l (95-108); CREATININE 1.4 mg/dL (0.7-1.3); GFR FOR AFR.AMER. > 60 ML/MIN (>=60 (CALC)); GFR OTHER RACES 52 ML/MIN (>=60 (CALC)); LIPASE 33 u/l (23-300); POTASSIUM 3.9 mmol/l (3.5-5.1); SGOT/AST 18 u/l (17-59); SODIUM 141 mmol/l (137-146); TOTAL PROTEIN 7.7 g/dL (6.3-8.2)
[2022-06-09] MEDS ORDERED: DULERA1 AE1 IN (11:21)
[2022-06-09] MEDS ORDERED: K-TABS10 MEQ PO (11:23)
[2022-06-09] MEDS ORDERED: TERAZOSIN1 MG PO (11:24)
[2022-06-09] MEDS ORDERED: COZAAR100 MG PO (11:24)
[2022-06-09] MEDS ORDERED: NIFEDIPINE60 MG PO (11:25)
[2022-06-09 13:30] LABS: URINE BILIRUBIN - DIPSTICK NEGATIVE (NEGATIVE); URINE BLOOD DIPSTICK NEGATIVE (NEGATIVE); URINE GLUCOSE - DIPSTICK NEGATIVE (NEGATIVE); URINE KETONE TRACE mg/dL (NEGATIVE); URINE LEUK ESTERASE NEGATIVE (Negative); URINE NITRITE - DIPSTICK POSITIVE (Negative); URINE PROTEIN - DIPSTICK 30 mg/dL (NEG-TRACE); URINE SPECIFIC GRAVITY >=1.030
[2022-06-09 13:35] LABS: URINE CLARITY HAZY; URINE COLOR DK. YELLOW
[2022-06-09 13:37] LABS: URINE BACTERIA FEW hpf; URINE EPITHELIAL CELLS FEW EPI/hpf (0-FEW); URINE MUCUS FEW hpf (NONE-FEW)
== END 2022-06-09 19:30 | disposition short-term general hospital (02) ==
LOC: ED 09:51
PROVIDERS: Emergency Medicine
PROC: 0T9B70Z Drainage of Bladder with Drainage Device, Via Natural or Artificial Opening (ICD-10-PCS; principal; 2022-06-09)
PROC: 05H533Z Insertion of Infusion Device into Right Subclavian Vein, Percutaneous Approach (ICD-10-PCS; 2022-06-09)
PROC: 5A09357 Assistance with Respiratory Ventilation, Less than 24 Consecutive Hours, Continuous Positive Airway Pressure (ICD-10-PCS; 2022-06-09)
PROC: 0BH17EZ Insertion of Endotracheal Airway into Trachea, Via Natural or Artificial Opening (ICD-10-PCS; 2022-06-09)
PROC: 5A1935Z Respiratory Ventilation, Less than 24 Consecutive Hours (ICD-10-PCS; 2022-06-09)
DX: I11.0 Hypertensive heart disease with heart failure (principal); I50.9 Heart failure, unspecified; J18.9 Pneumonia, unspecified organism; J44.0 Chronic obstructive pulmonary disease with (acute) lower respiratory infection; J44.1 Chronic obstructive pulmonary disease with (acute) exacerbation; J96.02 Acute respiratory failure with hypercapnia; J96.01 Acute respiratory failure with hypoxia; N39.0 Urinary tract infection, site not specified; E66.01 Morbid (severe) obesity due to excess calories; F17.200 Nicotine dependence, unspecified, uncomplicated; Z86.73 Personal history of transient ischemic attack (TIA), and cerebral infarction without residual deficits; Z20.822 Contact with and (suspected) exposure to COVID-19
CPT/HCPCS: Q9967

== ENCOUNTER 2023-03-03 09:19 | Emergency (ER) | payer MEDICARE, MEDICAID ==
[~2023-03-03] VITALS: Ht 182.9 cm; Wt 181.4 kg
[~2023-03-03 09:19] MED LIST changes: +COZAAR100 MG PO; +DULERA1 AE1 IN; +K-TABS10 MEQ PO; +NIFEDIPINE60 MG PO; +TERAZOSIN1 MG PO
[2023-03-03] MEDS ORDERED: OMNI-PAC300 MG PO (09:37)
[2023-03-03 09:47] VITALS: BP 127/70
== END 2023-03-03 09:56 | disposition home or self-care (01) ==
LOC: ED 09:19
DX: L91.8 Other hypertrophic disorders of the skin (principal); I10 Essential (primary) hypertension; E66.01 Morbid (severe) obesity due to excess calories; J45.909 Unspecified asthma, uncomplicated; F17.200 Nicotine dependence, unspecified, uncomplicated